=== PATIENT | female | born 1985 | race African-American/Black ===

== ENCOUNTER 2016-07-24 23:11 | Emergency (ER) | payer OTHER ==
[~2016-07-24] VITALS: Ht 165.1 cm; Wt 104.3 kg
[~2016-07-24 23:11] MED LIST: FLEXERIL PO; IBUPROFEN 800800 M1 PO; IBUPROFEN 800800 MG PO; IRON325 PO; MEDROL DOSPAK21 TAB PO; MEDROLDOSEPACK PO; ONDANSETRON HCL4 M2 PO; ORADENT 0.1% DEN5 G1 TOP; OXYCODONE HCL 55 MG PO; OXYCODONE HCL10 MG PO; OXYCONTIN10 M1 PO; PENICILLIN V P500 MG PO; PHENERGAN 25 MG25 M1 PO; PREDNISONE50 MG PO; PRENATAL; ROXICODONE5 MG PO; TRINATE TABLET1 TAB PO; ULTRAM 50MG TAB50 MG PO; ZOFRAN ODT4 MG PO
[2016-07-24] MEDS ORDERED: IBUPROFEN 600600 M1 PO (23:56)
== END 2016-07-25 00:15 | disposition home or self-care (01) ==
LOC: ER 23:11
DX: S93.491A Sprain of other ligament of right ankle, initial encounter (principal); Z90.49 Acquired absence of other specified parts of digestive tract; Z87.442 Personal history of urinary calculi; Z86.19 Personal history of other infectious and parasitic diseases; Z88.6 Allergy status to analgesic agent; Z88.5 Allergy status to narcotic agent; Z88.8 Allergy status to other drugs, medicaments and biological substances; X58.XXXA Exposure to other specified factors, initial encounter; Y93.89 Activity, other specified; Y92.89 Other specified places as the place of occurrence of the external cause; Y99.8 Other external cause status